=== PATIENT | female | born 1960 | race Caucasian/White ===

== ENCOUNTER 2024-07-10 03:38 | Outpatient (CLI) | payer MEDICARE, SELFPAY ==
[2024-07-10 11:19] LABS: BUN 17 mg/dL (7-18); CREATININE 0.9 mg/dL (0.55-1.02); Calculated LDL 146 mg/dL (<100); Chloride 106 mmol/L (98-107); Cholesterol 243 mg/dL (<200); Estimated GFR 70.95 (mL/min/1.73m2); Glucose 103 mg/dL (74-106); HDL Cholesterol 62 mg/dL (40-60); Potassium 4.3 mmol/L (3.5-5.1); Sodium 143 mmol/L (136-145); TSH (W/Ref FT4) 0.29 uIU/mL (0.36-3.74); Triglyceride 179 mg/dL (<150)
[2024-07-10 12:03] LABS: FREE T4 0.72 ng/dL (0.76-1.46)
== END 2024-07-10 03:39 | disposition home or self-care (01) ==
LOC: LBO 03:38
PROVIDERS: PCP Nurse Practitioner Family; Visit Provider Nurse Practitioner Family
DX: I10 Essential (primary) hypertension (principal); E04.1 Nontoxic single thyroid nodule
CPT/HCPCS: 36415; 80048; 80061; 84439; 84443

== ENCOUNTER 2024-07-22 01:03 | Outpatient (CLI) | payer MEDICARE, SELFPAY ==
--- NOTE | 2024-07-22 07:00 | DI.MAMMO_ITS ---
Exam(s) MAMMO SCREENING EXAM: MAMMO SCREENING CLINICAL HISTORY: screening,z12.39. TECHNIQUE: Bilateral full field digital CC and MLO mammographic images were obtained with 3D tomosyn thesis and utilizing computer aided detection (CAD). COMPARISON: Prior outside mammograms were reviewed. Most recent was 2018. FINDINGS: There has been no significant change in the appearance and distribution of the fibroglandular tissue. There are no new spiculated masses nor malignant appearing microcalcification groups. There is no significant architectural distortion nor skin thickening-retraction. IMPRESSION: No radiographic evidence of malignancy. BI-RADS Category 1 - Negative Breast Density - Category B - Scattered areas of fibroglandular density Breast density Category C or D implies that the patient has dense breast tissue. Dense breast tissue can make it harder to find cancer on a mammogram. Dense breast tissue is also associated with an incr eased risk of breast cancer. This information about the result of the mammogram report was provided to the patient to raise their awareness. Use this report when you speak with the patient about their risks for breast cancer, which includes their family history. At that time, you may recommend additional screening tests (Ultrasoun d or MRI) as these tests may add significant information. A negative radiographic report should not delay biopsy if a dominant or clinically suspicious mass is present. Up to ten percent of cancers are not identified on mammography. A negative report may reinforce clinical impression. Adenosis and dense breasts may obscure an underlying neoplasm. False positive reports average 6 to 10%. Patient will receive a letter notifying them of these results.
== END 2024-07-22 01:23 ==
LOC: DI 01:03
PROVIDERS: PCP Nurse Practitioner Family; Visit Provider Nurse Practitioner Family
DX: Z12.31 Encounter for screening mammogram for malignant neoplasm of breast (principal)
CPT/HCPCS: 77063; 77067

== ENCOUNTER 2025-03-10 19:45 | Outpatient (REF) | payer MEDICARE, SELFPAY ==
[2025-03-10 17:31] LABS: Bilirubin Negative (Negative); Blood Trace-intact (Negative); Clarity Cloudy (Clear); Glucose Negative (Negative); Ketones Negative (Negative); Leukocyte Esterase Moderate (Negative); Nitrite Positive (Negative); Specific Gravity 1.015 (1.005-1.025); Urobilinogen 0.2 mg/dL (Up to 0.2)
[2025-03-10 17:43] LABS: Bacteria Many HPF (Negative); C & S Indicated? Yes; Casts Negative LPF (Negative); Crystals Negative HPF (Negative); Epithelial Cells Rare HPF (Negative); Mucus Negative (Negative); RBC 0-2 HPF (0-2); WBC >50 HPF (0-5)
== END 2025-03-10 19:46 | disposition home or self-care (01) ==
LOC: LBN 19:45
PROVIDERS: PCP Nurse Practitioner Family; Visit Provider Nurse Practitioner Family
DX: R30.0 Dysuria (principal)
CPT/HCPCS: 87077; 81003; 81015; 87086; 87186

== ENCOUNTER 2025-05-25 01:34 | Outpatient (CLI) | payer MEDICARE, SELFPAY ==
[2025-05-25 09:33] LABS: Hemoglobin A1C 5.7 % (<5.7)
[2025-05-25 10:31] LABS: ALT 40 U/L (14-59); AST 21 U/L (15-37); Albumin 3.8 g/dL (3.4-5.0); Alkaline Phosphatase 109 U/L (46-116); Anion Gap 8.4 mmol/L (3-11); BUN 15 mg/dL (7-18); Bilirubin, Total 0.5 mg/dL (0.2-1.0); CO2 26.6 mmol/L (21.0-32.0); Calcium 9.2 mg/dL (8.5-10.1); Calculated LDL 135 mg/dL (<100); Chloride 106 mmol/L (98-107); Cholesterol 213 mg/dL (<200); Estimated GFR 81.21 (mL/min/1.73m2); Glucose 103 mg/dL (74-106); HDL Cholesterol 55 mg/dL (>or=50); Potassium 4.5 mmol/L (3.5-5.1); Sodium 141 mmol/L (136-145); TSH (W/Ref FT4) 0.18 uIU/mL (0.36-3.74); Total Protein 7.7 g/dL (6.4-8.2); Triglyceride 118 mg/dL (<150)
== END 2025-05-25 01:35 | disposition home or self-care (01) ==
LOC: LBO 01:34
PROVIDERS: PCP Nurse Practitioner Family; Visit Provider Nurse Practitioner Family
DX: E78.5 Hyperlipidemia, unspecified (principal); E04.1 Nontoxic single thyroid nodule; M85.80 Other specified disorders of bone density and structure, unspecified site; I10 Essential (primary) hypertension; R73.09 Other abnormal glucose
CPT/HCPCS: 36415; 80053; 80061; 83036; 84439; 84443

== ENCOUNTER 2025-07-27 07:21 | Outpatient (CLI) | payer MEDICARE, SELFPAY ==
--- NOTE | 2025-07-27 06:45 | DI.US_ITS ---
Exam(s) US THYROID EXAM: US THYROID CLINICAL HISTORY: re-check thyroid nodule,e04.1. TECHNIQUE: Ultrasound thyroid performed using standard protocol. COMPARISON: US US Thyroid from 09/22/2021 FINDINGS: ISTHMUS: 3.9 mm RIGHT LOBE: Size: 5.4 x 1.4 x 1.2 cm Echogenicity: Heterogeneous Vascularity: Normal. Nodules: Upper pole nodule measuring 1.4 x 0.7 x 0.8 cm. Solid, isoechoic, smoothly marginated without echogenic foci, TR 3. Nodule lower pole right lobe/isthmus measuring 3.5 x 1.6 x 2.8 cm. It contains macrocalcifications and punctate calcifications, hypoechoic smoothly marginated, TR 5. LEFT LOBE: Size: 4.9 x 1.8 x 1.4 cm Echogenicity: Heterogeneous Vascularity: Normal. Nodules: Upper pulmonary nodule measuring 1.1 x 0.8 x 0.9 cm. Solid, hypoechoic, smoothly marginated without echogenic foci. TR 4. Nodule lower pole 2.3 x 1.2 x 1.1 cm, hypoechoic, slightly taller than wide with punctate echogenic foci and microcalcifications, TR 5. OTHER FINDINGS: None. IMPRESSION: Multiple thyroid nodules with the larger thyroid nodules at the lower poles of both lobes are TR 5, FNA recommended. DATA REPOSITORY:
--- NOTE | 2025-07-27 12:42 | DI.MAMMO_ITS ---
Exam(s) MAMMO SCREENING EXAM: MAMMO SCREENING CLINICAL HISTORY: screening,z12.39 TECHNIQUE: Mammograms were interpreted according to the usual protocol including computer analysis with CAD system, tomosynthesis and C-view imaging. COMPARISON: 2015 through 2023 FINDINGS: The breasts are composed of scattered fibroglandular densities, Breast Density category B. No suspicious masses or suspicious microcalcifications are seen. No skin thickening or abnormal axillary lymph nodes are seen. There has been no significant change from prior exams. IMPRESSION: BI-RADS Category 1, Negative mammogram Yearly screening mammography is recommended. Breast Density - Category B - There are scattered areas of fibroglandular density. Breast density Category C or D implies that the patient has dense breast tissue. Dense breast tissue can make it harder to find cancer on a mammogram. Dense breast tissue is also associated with an increased risk of breast cancer. This information about the result of the mammogram report was provided to the patient to raise their awareness. Use this report when you speak with the patient about their risks for breast cancer, which includes their family history. At that time, you may recommend additional screening tests (Ultrasound or MRI) as these tests may add significant information. A negative radiographic report should not delay biopsy if a dominant or clinically suspicious mass is present. Up to ten percent of cancers are not identified on mammography. A negative report may reinforce clinical impression. Adenosis and dense breasts may obscure an underlying neoplasm. False positive reports average 6 to 10%. Patient will receive a letter notifying them of these results. RADIATION DOSE DELIVERED: Total DLP
== END 2025-07-27 07:41 ==
LOC: DI 07:22
PROVIDERS: PCP Nurse Practitioner Family; Visit Provider Nurse Practitioner Family
DX: Z12.31 Encounter for screening mammogram for malignant neoplasm of breast (principal); E04.2 Nontoxic multinodular goiter
CPT/HCPCS: 77063; 77067; 76536